=== PATIENT | female | born 1980 | race Caucasian/White ===

== ENCOUNTER 2016-12-04 12:51 | Emergency (ER) | payer BC ==
[~2016-12-04] VITALS: Ht 157.5 cm; Wt 65.0 kg
[2016-12-04 13:33] VITALS: BP 148/92
== END 2016-12-04 13:34 | disposition home or self-care (01) ==
LOC: ED 12:57
DX: S83.91XA Sprain of unspecified site of right knee, initial encounter (principal); W03.XXXA Other fall on same level due to collision with another person, initial encounter; Y93.89 Activity, other specified; Y92.009 Unspecified place in unspecified non-institutional (private) residence as the place of occurrence of the external cause
CPT/HCPCS: 99282; 99283

== ENCOUNTER → 2016-12-12 | Outpatient (CLI) | payer BC ==
[2016-12-12 16:47] VITALS: BP 134/80
== END ==
LOC: MHUC 16:24
PROVIDERS: ATTEND Physician Assistant
DX: J02.0 Streptococcal pharyngitis (principal)
CPT/HCPCS: 87880; 99213

== ENCOUNTER → 2017-01-30 | Outpatient (CLI) | payer BC ==
[~2017-01-30] MED LIST: AMOX500C5 PO; FERR325C; PREN1TAB79
--- NOTE | 2017-01-30 16:25 | Diagnostic Imaging Report ---
EXAMINATION: MRI of the right knee without contrast from 01/30/2017. TECHNIQUE: Multiplanar, multisequence non contrast-enhanced MRI of the right lower extremity was accomplished. INDICATION: Knee pain, fell a couple of months ago. FINDINGS: The PCL is intact. The extensor mechanism is also intact. The ACL contains some ill definition and high signal suggesting at least partial tear. There may be a few residual fibers intact but for the most part, the ACL is ill defined in appearance. There is mild high signal within the posterior aspect of the lateral tibial plateau. No significant edema is seen within the adjacent femoral condyle however this edema in the tibial plateau could be due to bone contusion from an ACL injury. There is no discontinuity within the lateral collateral ligamentous complex which is intact and unremarkable. The MCL is also intact. Minimal edema posterior to the proximal MCL could be due to a mild sprain but no discontinuity is appreciated. The posterior horn of the medial meniscus contains myxoid degeneration with no discrete tears appreciated. The lateral meniscus appears intact. The cartilage throughout the joint demonstrates minimal thinning in the lateral and medial joint compartments. 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 There is a small joint effusion. There is a very small slit-like Flores's cyst. Edema throughout the soft tissues in the posterior aspect of the knee are noted and nonspecific, perhaps reactive from the recent trauma. Some heterogeneity of the bone marrow signal is noted, especially involving the medial metadiaphysis of the femur and the proximal metadiaphysis of the tibia. Most likely, this is normal bone marrow signal for this patient. Anemia could cause a similar appearance. Clinical correlation however is recommended. IMPRESSION: 1. Edema within the posterolateral tibial plateau, perhaps due to bone contusion given history. The ACL contains high signal and is somewhat ill defined, suspicious for an ACL tear. If is not complete, at least a fairly prominent partial tear. Correlate with history, symptoms, and physical examination. 2. Remaining ligaments and tendons are intact, although some edema noted adjacent to the proximal MCL which could be due to a type I sprain. 3. Menisci are intact. 4. Mild degenerative findings with other incidental findings, as discussed above. Dictated by: Dictated on workstation # [id number]
== END ==
LOC: RAD 14:48
PROVIDERS: ATTEND Physician Assistant
DX: M25.561 Pain in right knee (principal)
CPT/HCPCS: 73721